=== PATIENT | female | born 1945 | race Caucasian/White ===

== ENCOUNTER 2020-01-25 09:35 | Outpatient (CLI) | payer MEDICARE | END 2020-01-25 09:36 | disposition home or self-care (01) | LOC: CTENTCT 09:35 | PROVIDERS: ATTEND Specialist | DX: J32.8 Other chronic sinusitis (principal) | CPT/HCPCS: 70486 ==

== ENCOUNTER 2025-06-14 08:43 | Outpatient (CLI) | payer MEDICARE | END 2025-06-14 08:44 | disposition home or self-care (01) | LOC: SCSBT 08:43 | PROVIDERS: ATTEND Internal Medicine Hematology & Oncology | DX: Z13.820 Encounter for screening for osteoporosis (principal); C50.812 Malignant neoplasm of overlapping sites of left female breast; Z79.818 Long term (current) use of other agents affecting estrogen receptors and estrogen levels | CPT/HCPCS: 77080 ==